=== PATIENT | female | born 1960 | race Caucasian/White ===

== ENCOUNTER → 2016-10-15 | Outpatient (CLI) | payer OTHER ==
[~2016-10-15] MED LIST: CENTTAB PO; IBUP600T26 PO; OMEP40CA2 PO; PRED10TA PO; SULF1TAB72 PO
== END ==
LOC: M SMT 11:16
PROVIDERS: ATTEND Internal Medicine Pulmonary Disease
DX: D86.1 Sarcoidosis of lymph nodes (principal); M99.01 Segmental and somatic dysfunction of cervical region

== ENCOUNTER → 2017-06-09 | Day surgery (SDC) | payer OTHER ==
[~2017-06-09] VITALS: Ht 167.6 cm; Wt 90.7 kg
[~2017-06-09] MED LIST changes: +ACETYLCHOLINE OPHTH SOLN 1% 2ML (MIOCHOL-E) As Ordered ONE; +BALANCED SALT IRRIGATION SOLUTION 500ML BAG (FOR OR EYE MACHINE) As Ordered ONE; +CEFUROXIME 1MG/0.1ML INTRACAMERAL INJ As Ordered ONE; +D5W/0.2% SODIUM CHLORIDE 250 ML IV ONE; +DUOVISC (0.50ML VISCOAT/0.55ML PROVISC) OPHTH KIT As Ordered ONE; +IBUP-1022 PO; -IBUP600T26 PO; +LIDOCAINE 0.75%/EPINEPHRINE 0.025% IN BSS 1ML SYR INTRACAMERAL (OR ONLY) As Ordered ONE; +MIDAZOLAM INJ 2 MG/2 ML VIAL (J2250) As Ordered ONE; +OFLOXACIN 0.3 % (OCUFLOX) OPTH SOL 5ML OD ONE; +PHENYLEPHRINE 2.5% OPHTH SOL 2ML OD ONE; +POVIDONE-IODINE 5% OPHTH PREP SOL 30ML As Ordered ONE; +PROPARACAINE 0.5% OPHTH SOL 15ML OD ONE; +TROPICAMIDE 1% OPHTH SOLN 2ML OD ONE; +fentaNYL 100 MCG/2 ML INJECTION (J3010) As Ordered ONE
[2017-06-09 11:05] VITALS: BP 108/58
--- NOTE | 2017-06-09 20:18 | RO ---
DATE OF PROCEDURE: 06/09/2017 PREOPERATIVE DIAGNOSES: 1. Visually significant nuclear sclerotic cataract right eye. 2. Regular astigmatism right eye. POSTOPERATIVE DIAGNOSES: 1. Visually significant nuclear sclerotic cataract right eye. 2. Regular astigmatism right eye. PROCEDURE: Cataract extraction with use of phacoemulsification and placement of Toric intraocular lens [id number], 12.5 diopters lens at 111 degrees, right eye. SURGEON: Xavier Martin DO OPHTHALMIC TECH: ANESTHESIA: Local with monitored anesthesia care (MAC). COMPLICATION: None. POSTOPERATIVE CONDITION: Stable. INDICATION FOR SURGERY: Blurred vision right eye affecting patient's activities of daily living. DESCRIPTION OF PROCEDURE: The patient was seen in the preoperative area and properly identified. The correct operative eye was identified and marked. Attention was turned to that eye. The patient received topical tetracaine and antibiotics in the preoperative area. The patient then received topical dilating drops consisting of tropicamide and phenylephrine. The patient was sat upright at the bedside, and a drop of tetracaine was placed. Using a toric axis marker with ink, 0, 90, and 180 degrees were marked. The patient was then transferred to the operating room. The correct side was reidentified. The patient received topical anesthetics and antibiotics on the surface of the eye. The eye was prepped and draped in a sterile fashion. The upper and lower eyelids were isolated with Tegaderm tape, and the lids were held open with an adjustable speculum . The axis and power was predetermined using a toric algorithm. Using the toric astigmatism instruments, the axis was marked and inked. Using a sideport blade, a paracentesis incision was made. Intraocular preservative-fee lidocaine was then injected into the anterior chamber. Viscoelastic was then injected into the anterior chamber through the paracentesis. Using a 2.4 mm sharp-tipped keratome, the anterior chamber was entered via a temporal clear corneal incision. A continuous curvilinear capsulorrhexis was created with the aid of a 26-gauge cystotome and Utrata forceps. Hydrodissection was performed with balanced salt solution (BSS) on a blunt cannula until the nucleus was freely mobile. The crystalline lens was phacoemulsified and aspirated. Additional cohesive viscoelastic was placed into the capsular bag to deepen it. A SN6AT5, 12.5 diopters lens at 111 degrees, right eye was placed into the capsular bag and confirmed by visualizing the continuous curvilinear capsulorrhexis. Additional irrigation and aspiration was used to remove the cortical material and remaining viscoelastic. The clear corneal incision was hydrated with BSS on a blunt cannula. The lens was well positioned. The incisions were then tested for leaks and found to be negative. The eye was then palpated for appropriate pressure and adjusted accordingly with BSS. Several drops of antibiotics and Iopidine were placed in the eye. The eyelid speculum was then carefully removed. A shield was placed. The patient tolerated the procedure well and was discharged to the recovery unit in a stable condition. EULALIO
== END | disposition home or self-care (01) ==
LOC: M SDC 08:26
PROVIDERS: ATTEND Ophthalmology
DX: H25.11 Age-related nuclear cataract, right eye (principal); Z88.1 Allergy status to other antibiotic agents; M81.0 Age-related osteoporosis without current pathological fracture
CPT/HCPCS: 66984; J2250; J3010

== ENCOUNTER 2017-10-27 07:49 | Day surgery (SDC) | payer OTHER ==
[2017-10-27] MEDS ORDERED: LIDOCAINE 1% MDV 20ML VIAL SQ (08:00)
[2017-10-27] MEDS: PHENYLEPHRINE 2.5% OPHTH SOL 2ML OS (08:21)
[2017-10-27] MEDS: OFLOXACIN 0.3 % (OCUFLOX) OPTH SOL 5ML OS (08:21)
[2017-10-27] MEDS: TROPICAMIDE 1% OPHTH SOLN 2ML OS (08:21)
[2017-10-27] MEDS: PROPARACAINE 0.5% OPHTH SOL 15ML OS (08:22)
[2017-10-27] MEDS: POVIDONE-IODINE 5% OPHTH PREP SOL 30ML As Ordered (09:22)
[2017-10-27] MEDS: ACETYLCHOLINE OPHTH SOLN 1% 2ML (MIOCHOL-E) As Ordered (09:26)
[2017-10-27] MEDS: BALANCED SALT IRRIGATION SOLUTION 500ML BAG (FOR OR EYE MACHINE) As Ordered (09:26)
[2017-10-27] MEDS: DUOVISC (0.50ML VISCOAT/0.55ML PROVISC) OPHTH KIT As Ordered (09:26)
[2017-10-27] MEDS: LIDOCAINE 0.75%/EPINEPHRINE 0.025% IN BSS 1ML SYR INTRACAMERAL (OR ONLY) As Ordered (09:26)
[2017-10-27] MEDS: CEFUROXIME 1MG/0.1ML INTRACAMERAL INJ As Ordered (09:26)
[2017-10-27] MEDS ORDERED: fentaNYL 100 MCG/2 ML INJECTION (J3010) As Ordered (09:28)
[2017-10-27] MEDS ORDERED: MIDAZOLAM INJ 2 MG/2 ML VIAL (J2250) As Ordered (09:28)
== END 2017-10-27 10:21 | disposition home or self-care (01) ==
LOC: M SDC 07:49
DX: H25.12 Age-related nuclear cataract, left eye (principal); Z88.1 Allergy status to other antibiotic agents; D86.9 Sarcoidosis, unspecified; M35.9 Systemic involvement of connective tissue, unspecified
CPT/HCPCS: 66984

== ENCOUNTER → 2020-02-28 | Outpatient (CLI) | payer OTHER ==
[~2020-02-28] MED LIST changes: -ACETYLCHOLINE OPHTH SOLN 1% 2ML (MIOCHOL-E) As Ordered ONE; -BALANCED SALT IRRIGATION SOLUTION 500ML BAG (FOR OR EYE MACHINE) As Ordered ONE; +BESI0.6S OS; +BROM0.07 OS; +CATAPLEX D PO; -CEFUROXIME 1MG/0.1ML INTRACAMERAL INJ As Ordered ONE; -D5W/0.2% SODIUM CHLORIDE 250 ML IV ONE; -DUOVISC (0.50ML VISCOAT/0.55ML PROVISC) OPHTH KIT As Ordered ONE; -LIDOCAINE 0.75%/EPINEPHRINE 0.025% IN BSS 1ML SYR INTRACAMERAL (OR ONLY) As Ordered ONE; +MAG-84TA PO; -MIDAZOLAM INJ 2 MG/2 ML VIAL (J2250) As Ordered ONE; -OFLOXACIN 0.3 % (OCUFLOX) OPTH SOL 5ML OD ONE; -OMEP40CA2 PO; +OMEP40CA97 PO; -PHENYLEPHRINE 2.5% OPHTH SOL 2ML OD ONE; -POVIDONE-IODINE 5% OPHTH PREP SOL 30ML As Ordered ONE; +PRED-351 PO; -PRED10TA PO; +PROHANCE 279.3MG/ML 15ML VIAL As Ordered ONE; +PROHANCE 279.3MG/ML 5ML VIAL As Ordered ONE; -PROPARACAINE 0.5% OPHTH SOL 15ML OD ONE; -SULF1TAB72 PO; +SULF400T14 PO; -TROPICAMIDE 1% OPHTH SOLN 2ML OD ONE; +[UNRECOGNIZED DRUG - OTHER] PO; +[UNRECOGNIZED DRUG - OTHER] PO; +[UNRECOGNIZED DRUG - OTHER] PO; +[UNRECOGNIZED DRUG - OTHER] PO; -fentaNYL 100 MCG/2 ML INJECTION (J3010) As Ordered ONE
--- NOTE | 2020-02-29 15:05 | REP ---
MRI ABDOMEN WITH AND WITHOUT CONTRAST: TECHNIQUE: Multiple sequences obtained in the axial and coronal planes prior to and following intravenous administration of 18 mL ProHance. The liver demonstrates relatively normal signal with no evidence of fatty infiltration or definite evidence for cirrhosis. There is no enhancing mass. The patient has had a prior cholecystectomy. There is mild intrahepatic and extrahepatic biliary dilatation, as expected, common bile duct has a maximum diameter of 10 mm. It tapers distally in a normal fashion. Spleen is normal in size with no intrinsic abnormality. The adrenal glands are normal. No pancreatic mass or pancreatic duct dilatation is seen. In the upper pole of the right kidney, there is a simple cyst measuring 6.3 cm in diameter. There is an adjacent 8 mm cyst also seen in the upper pole of the right kidney. There is no hydronephrosis bilaterally. The abdominal aorta is normal in caliber. No adenopathy or free fluid is seen in the abdomen. IMPRESSION: No evidence of fatty infiltration of the liver or cirrhosis. Portal vein diameter is upper limits of normal at 13-14 mm. Patient has had a prior cholecystectomy. There is mild dilatation of the intrahepatic bile ducts and mild prominence of the common bile duct as expected, measuring 10 mm in diameter. Right renal cysts. Electronically Signed by Fernando Raymond MD 03/03/2020 10:01 P
== END ==
LOC: M RAD 14:56
PROVIDERS: ATTEND Internal Medicine Hematology & Oncology
DX: R59.0 Localized enlarged lymph nodes (principal); N28.1 Cyst of kidney, acquired; Z90.49 Acquired absence of other specified parts of digestive tract
CPT/HCPCS: 74183; A9576

== ENCOUNTER → 2025-08-05 | Outpatient (REF) | payer OTHER ==
[~2025-08-05] MED LIST changes: -IBUP-1022 PO; +IBUP600T42 PO; +OMEP40CA4 PO; -OMEP40CA97 PO; -PROHANCE 279.3MG/ML 15ML VIAL As Ordered ONE; -PROHANCE 279.3MG/ML 5ML VIAL As Ordered ONE
== END ==
LOC: M LAB REF 17:13
PROVIDERS: ATTEND Internal Medicine Pulmonary Disease
DX: D86.1 Sarcoidosis of lymph nodes (principal)